=== PATIENT | male | born 1970 | race Caucasian/White ===

== ENCOUNTER 2016-10-01 10:56 | Emergency (ER) | payer OTHER ==
[~2016-10-01] VITALS: Ht 177.8 cm; Wt 85.3 kg
[~2016-10-01 10:56] MED LIST: DIAZEPAM10 MG; LIBRIUM25 MG PO; METHADONE10 MG PO; METHADONE5 MG PO; NEXIUM40 MG PO; VALIUM10 MG PO; ZANTAC75 M1 PO
[2016-10-01 12:22] LABS: HEMATOCRIT 44.4 % (38.0-50.0); MCH 30.5 PG (29.0-34.0); MCV 89.7 FL (86-99); MEAN PLAT.VOLUME 10.8 uM^3 (9.0-12.4); PLATELET COUNT 253 K/uL (156-360); RBC DIS.WIDTH-CV 12.2 % (11.8-14.6); RBC DIS.WIDTH-SD 39.8 % (39-53); RED BLOOD COUNT 4.95 M/uL (4.00-5.50); WHITE BLOOD COUNT 11.3 K/uL (4.1-10.2)
[2016-10-01 12:34] LABS: CHLORIDE 103 mEq/L (99-109); POTASSIUM 4.4 mEq/L (3.7-5.4); SODIUM 137 mEq/L (136-147)
[2016-10-01 12:35] LABS: GLUCOSE 117 mg/dL (70-99)
[2016-10-01 12:37] LABS: ANION GAP 10 MEQ/L (2-14)
[2016-10-01 12:39] LABS: GFR ESTIMATE (CALCULATED) > 59 mL/min/
[2016-10-01 12:40] LABS: UREA NITROGEN (BUN) 13 mg/dL (9-23)
[2016-10-01 12:43] LABS: TROP-I INTERPRETATION NEGATIVE; TROPONIN-I < 0.01 ng/mL (0.0-0.30)
[2016-10-01] MEDS ORDERED: SUBOXONE 4 MG-1 EACH PO (12:57)
[2016-10-01 14:10] VITALS: BP 125/83
[2016-10-01] MEDS ORDERED: CILOXAN 0.100 DROP/5 BOTH EYES (14:10)
== END 2016-10-01 14:19 | disposition home or self-care (01) ==
LOC: EME 10:56 → RME 10:56
DX: R07.89 Other chest pain (principal); F17.200 Nicotine dependence, unspecified, uncomplicated; Z88.6 Allergy status to analgesic agent; Z88.0 Allergy status to penicillin; Z88.5 Allergy status to narcotic agent; Z82.49 Family history of ischemic heart disease and other diseases of the circulatory system
CPT/HCPCS: 71020; 80048; 84484; 85027; 93005; 99281; 99283